=== PATIENT | male | born 1950 | race Caucasian/White ===

== ENCOUNTER → 2017-06-09 | Outpatient (CLI) | payer BC, OTHER ==
[~2017-06-09] MED LIST: AGM875 PO; ASPEC325 PO; ASPEC81 PO; ASPI-113 PO; ATRIN6; CHOL4POW6; CYCL0.052 OP; FLM4 PO; LPT20 PO; METR0.754; MULT-506 PO; PLV75 PO; RSTOPS OPB
== END | disposition home or self-care (01) ==
LOC: C.LABSPEC 17:56
PROVIDERS: ATTEND Internal Medicine
DX: Z12.11 Encounter for screening for malignant neoplasm of colon (principal)

== ENCOUNTER → 2017-06-17 | Outpatient (CLI) | payer BC, OTHER ==
[2017-06-17 13:42] LABS: ALT/SGPT 49 U/L (12-78); AST/SGOT 29 U/L (15-37); BLOOD UREA NITROGEN 15 mg/dl (7-18); BUN/CREATININE RATIO 13.6 (10-20); CALCIUM 8.6 mg/dl (8.5-10.1); CARBON DIOXIDE 27 mmol/L (21-32); CHLORIDE 106 mmol/L (98-107); GLUCOSE 94 mg/dl (70-99); POTASSIUM 4.3 mmol/L (3.5-5.1); SODIUM 140 mmol/L (136-145)
[2017-06-17 13:47] LABS: ALB/GLOB RATIO 1.2 (0.9-2); ALKALINE PHOSPHATASE 53 U/L (45-117); CHOLESTEROL 275 mg/dl (0-200); CHOLESTEROL/HDL RATIO 5.2; HDL CHOLESTEROL 53 mg/dl; TRIGLYCERIDES 194 mg/dl (0-150); VERY LOW DENSITY LIPOPROT CALC 39 mg/dl
== END | disposition home or self-care (01) ==
LOC: C.LABSPEC 12:37
PROVIDERS: ATTEND Internal Medicine
DX: C61 Malignant neoplasm of prostate (principal)

== ENCOUNTER 2017-09-30 14:05 | Emergency (ER) | payer OTHER, BC ==
[~2017-09-30] VITALS: Ht 177.8 cm; Wt 92.0 kg
[~2017-09-30 14:05] MED LIST changes: -AGM875 PO; -ASPEC325 PO; -ASPEC81 PO; -ASPI-113 PO; +ASPI-320 PO; -ATRIN6; -CHOL4POW6; -METR0.754; -RSTOPS OPB
[2017-09-30 14:08] VITALS: TEMP 36.9; Ht 177.8 cm; Wt 92.0 kg
[2017-09-30] MEDS ORDERED: ONDANSETRON INJ 2 MG/ML 2 ML VIAL IV STA (14:17)
[2017-09-30] MEDS ORDERED: GI COCKTAIL PO STA (14:17)
[2017-09-30] MEDS ORDERED: SODIUM CHLORIDE 0.9% 1000ML 2,000 ML IV STA (14:17)
[2017-09-30] MEDS ORDERED: OMEG1CAP81 PO (14:24)
[2017-09-30] MEDS ORDERED: OMEG1CAP84 PO (14:24)
[2017-09-30] MEDS ORDERED: ALUMINUM/MAGNESIUM SUSP 30 ML UDC ONE (14:42)
[2017-09-30 14:43] LABS: EOS % 0.4 %; EOS ABS # 0.03 K/uL (0-0.5); HEMATOCRIT 43.4 % (42-52); HEMOGLOBIN 14.9 g/dL (14.0-18.0); IG# 0.01 K/uL (0.00-0.02); LYMPH % 4.5 %; LYMPH ABS # 0.35 K/uL (1.2-3.4); MEAN CELL VOLUME 90.4 fL (80-100); MEAN CORPUSCULAR HGB CONC 34.3 g/dl (32-36); MEAN PLATELET VOLUME 9.2 fL (7.4-10.4); MONO % 3.5 %; MONO ABS # 0.27 K/uL (0.11-0.59); NEUT % 91.5 %; NEUT ABS # 7.09 K/uL (1.4-6.5); PLATELET COUNT 194 K/uL (130-400); RED CELL DISTRIBUTION WIDTH CV 13.5 % (11.5-14.5); RED CELL DISTRIBUTION WIDTH SD 44.2 fL (36.4-46.3); WHITE BLOOD COUNT 7.75 K/uL (4.8-10.8)
[2017-09-30] MEDS ORDERED: LIDOCAINE HCL 2% VISC SOLN 20 ML UDC ONE (14:43)
[2017-09-30] MEDS ORDERED: SODIUM CHLORIDE 0.9% 1000ML 1,000 ML IV STA (14:49)
--- NOTE | 2017-09-30 14:58 | DIAGNOSTIC IMAGING REPORT ---
ABDOMEN AND PELVIS CT WITHOUT CONTRAST CT DOSE: 925.69 mGycm HISTORY: Generalized abdominal pain. Fever. TECHNIQUE: Multiaxial CT images of the abdomen and pelvis were performed without contrast. A dose lowering technique was utilized adhering to the principles of ALARA. COMPARISON STUDY: None. FINDINGS: The lung bases are clear. No pneumoperitoneum. No pneumatosis. No suspicious lytic or blastic osseous lesions. Mild hepatic steatosis. The unenhanced spleen, adrenal glands, pancreas, and gallbladder are unremarkable. No renal or ureteral stones. No hydronephrosis. A few surgical clips within the prostate gland. No retroperitoneal lymphadenopathy. Suboptimal evaluation for bowel pathology due to the lack of intravenous and oral contrast. However, there is no definite bowel wall thickening or obstruction. A few scattered colonic diverticula. Normal appendix. Small fat-containing right inguinal hernia. Moderate bladder wall thickening. IMPRESSION: 1. No bowel wall thickening or obstruction. 2. Moderate bladder wall thickening. Recommend correlation with urinalysis to exclude a cystitis. 3. Colonic diverticulosis. 4. Normal appendix. 5. Mild hepatic steatosis. Electronically signed by: Owen Gamble M.D. 09/30/2017 2:56 PM Dictated Date/Time: 09/30/2017 2:47 PM
[2017-09-30 15:02] LABS: ALBUMIN 3.8 gm/dl (3.4-5.0); CALCIUM 8.5 mg/dl (8.5-10.1); CREATININE 1.12 mg/dl (0.60-1.40); POTASSIUM 3.7 mmol/L (3.5-5.1)
[2017-09-30 15:05] LABS: TOTAL PROTEIN 7.2 gm/dl (6.4-8.2)
--- NOTE | 2017-09-30 15:59 | EMERGENCY ROOM VISIT NOTE ---
History Report prepared by [place]: Yosi Mack Under the Supervision of: Dr. Omar Roblero D.O. 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 He notes three episodes of vomiting. He notes abdominal pain. His abdominal pain is more of an achy feeling throughout his whole abdomen. He was referred in by his primary care doctor. He notes that he has taken Tylenol. He notes recent fevers of 100.9 and 99. He notes positive sick contacts. He reports that he has been able to keep ice chips down. He has a hiatal hernia and he normally sleeps on a wedge pillow. He has had a flare up today with his acid reflux. He denies any blood in vomit. He notes his last normal bowel movement was last evening. Pt denies headache, change in vision, fevers, chest pain, shortness of breath, diarrhea, pain with urination, and melena. Patient denies diabetes, hypertension, hyperlipidemia, CAD, history of sudden at a young age, and smoking. Patient denies swelling of calves, recent trips, history of immobilization or recent surgery, prior history of DVT, hemoptysis, history of malignancy, and history of smoking. He notes that he has not taken any of his daily medications. 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 He denies any changes in vision. Review of Systems See HPI for pertinent positives & negatives. A total of 10 systems reviewed and were otherwise negative. Past Medical & Surgical Medical Problems: (1) ACUTE MEMORY LOSS (2) Prostate CA Family History No pertinent family history reported. Social History Smoking Status: Never Smoker Smokeless Tobacco Use: No Alcohol Use: none Drug Use: none Marital Status: Housing Status: lives with significant other Current/Historical Medications Scheduled Aspirin (Aspirin EC Low Dose), 81 MG PO QAM Atorvastatin (Atorvastatin Calcium), 20 MG PO QAM Clopidogrel Bisulfate (Clopidogrel), 75 MG PO QAM Cyclosporine (Ophth) (Restasis), 1 DROP OP BID Multivitamin (Multivitamin), 1 TAB PO DAILY [place]-3 Fatty Acids (Fish Oil), 3 CAP PO QPM [place]-3 Fatty Acids (Fish Oil), 2 CAP PO QAM Allergies Coded Allergies: Iodinated Diagnostic Agents (Verified Allergy, Intermediate, Hives, ) Codeine (Unverified Allergy, Unknown, HEADACHE, 09/30/17) Erythromycin (Unverified Allergy, Unknown, HIVES, 09/30/17) Latex (Unverified Allergy, Unknown, SKIN IRRITATION, 09/30/17) Physical Exam Vital Signs Date Time Temp Pulse Resp B/P (MAP) Pulse Ox O2 Delivery O2 Flow Rate FiO2 09/30/17 16:43 70 17 113/77 97 09/30/17 15:52 65 18 120/77 96 Room Air 09/30/17 14:08 36.9 100 16 124/78 97 Room Air Physical Exam GENERAL: Sitting up in bed, alert, well appearing, well nourished, no distress, non-toxic EYE EXAM: normal conjunctiva. OROPHARYNX: no exudate, no erythema, lips, buccal mucosa, and tongue normal and mucous membranes are moist NECK: supple, no nuchal rigidity, no adenopathy, non-tender LUNGS: Clear to auscultation. Normal chest wall mechanics HEART: no murmurs, S1 normal and S2 normal ABDOMEN: abdomen soft, non-tender, normo-active bowel sounds, no masses, no rebound or guarding. BACK: Back is symmetrical on inspection and there is no deformity, no midline tenderness, no CVA tenderness. SKIN: no rashes and no bruising UPPER EXTREMITIES: upper extremities are grossly normal. LOWER EXTREMITIES: No pitting edema. NEURO EXAM: Normal sensorium, cranial nerves II-XII grossly intact, normal speech, no gross weakness of arms, no gross weakness of legs. Medical Decision & Procedures ER Provider Diagnostic Interpretation: Radiology results as stated below per my review and the radiologist's interpretation: ABDOMEN AND PELVIS CT WITHOUT CONTRAST CT DOSE: 925.69 mGycm HISTORY: Generalized abdominal pain. Fever. TECHNIQUE: Multiaxial CT images of the abdomen and pelvis were performed without contrast. A dose lowering technique was utilized adhering to the principles of ALARA. COMPARISON STUDY: None. FINDINGS: The lung bases are clear. No pneumoperitoneum. No pneumatosis. No suspicious lytic or blastic osseous lesions. Mild hepatic steatosis. The unenhanced spleen, adrenal glands, pancreas, and gallbladder are unremarkable. No renal or ureteral stones. No hydronephrosis. A few surgical clips within the prostate gland. No retroperitoneal lymphadenopathy. Suboptimal evaluation for bowel pathology due to the lack of intravenous and oral contrast. However, there is no definite bowel wall thickening or obstruction. A few scattered colonic diverticula. Normal appendix. Small fat-containing right inguinal hernia. Moderate bladder wall thickening. IMPRESSION: 1. No bowel wall thickening or obstruction. 2. Moderate bladder wall thickening. Recommend correlation with urinalysis to exclude a cystitis. 3. Colonic diverticulosis. 4. Normal appendix. 5. Mild hepatic steatosis. Electronically signed by: Owen Gamble M.D. 09/30/2017 2:56 PM Dictated Date/Time: 09/30/2017 2:47 PM Laboratory Results 09/30/17 14:31 Red Blood Count 4.80, Mean Corpuscular Volume 90.4, Mean Corpuscular Hemoglobin 31.0, Mean Corpuscular Hemoglobin Concent 34.3, Mean Platelet Volume 9.2, Neutrophils (%) (Auto) 91.5, Lymphocytes (%) (Auto) 4.5, Monocytes (%) (Auto) 3.5, Eosinophils (%) (Auto) 0.4, Basophils (%) (Auto) 0.0, Neutrophils # (Auto) 7.09, Lymphocytes # (Auto) 0.35, Monocytes # (Auto) 0.27, Eosinophils # (Auto) 0.03, Basophils # (Auto) 0.00 09/30/17 14:31 Test 09/30/17 14:31 09/30/17 15:57 White Blood Count 7.75 K/uL (4.8-10.8) Red Blood Count 4.80 M/uL (4.7-6.1) Hemoglobin 14.9 g/dL (14.0-18.0) Hematocrit 43.4 % (42-52) Mean Corpuscular Volume 90.4 fL (80-100) Mean Corpuscular Hemoglobin 31.0 pg (25-34) Mean Corpuscular Hemoglobin Concent 34.3 g/dl (32-36) Platelet Count 194 K/uL (130-400) Mean Platelet Volume 9.2 fL (7.4-10.4) Neutrophils (%) (Auto) 91.5 % Lymphocytes (%) (Auto) 4.5 % Monocytes (%) (Auto) 3.5 % Eosinophils (%) (Auto) 0.4 % Basophils (%) (Auto) 0.0 % Neutrophils # (Auto) 7.09 K/uL (1.4-6.5) Lymphocytes # (Auto) 0.35 K/uL (1.2-3.4) Monocytes # (Auto) 0.27 K/uL (0.11-0.59) Eosinophils # (Auto) 0.03 K/uL (0-0.5) Basophils # (Auto) 0.00 K/uL (0-0.2) RDW Standard Deviation 44.2 fL (36.4-46.3) RDW Coefficient of Variation 13.5 % (11.5-14.5) Immature Granulocyte % (Auto) 0.1 % Immature Granulocyte # (Auto) 0.01 K/uL (0.00-0.02) Anion Gap 8.0 mmol/L (3-11) Est Creatinine Clear Calc Drug Dose 75.0 ml/min Estimated GFR () 79.5 Estimated GFR (Non- 68.6 BUN/Creatinine Ratio 14.8 (10-20) Calcium Level 8.5 mg/dl (8.5-10.1) Total Bilirubin 0.7 mg/dl (0.2-1) Direct Bilirubin 0.2 mg/dl (0-0.2) Aspartate Amino Transf (AST/SGOT) 47 U/L (15-37) Alanine Aminotransferase (ALT/SGPT) 91 U/L (12-78) Alkaline Phosphatase 71 U/L (45-117) Total Protein 7.2 gm/dl (6.4-8.2) Albumin 3.8 gm/dl (3.4-5.0) Lipase 191 U/L (73-393) Urine Color DK YELLOW Urine Appearance CLEAR (CLEAR) Urine pH 6.5 (4.5-7.5) Urine Specific [place] 1.030 (1.000-1.030) Urine Protein NEG (NEG) Urine Glucose (UA) NEG (NEG) Urine Ketones TRACE (NEG) Urine Occult Blood NEG (NEG) Urine Nitrite NEG (NEG) Urine Bilirubin NEG (NEG) Urine Urobilinogen NEG (NEG) Urine Leukocyte Esterase NEG (NEG) Urine WBC (Auto) 0 /hpf (0-5) Urine RBC (Auto) 0-4 /hpf (0-4) Urine Hyaline Casts (Auto) 1-5 /lpf (0-5) Urine Epithelial Cells (Auto) 0-5 /lpf (0-5) Urine Bacteria (Auto) NEG (NEG) Laboratory results per my review. Medications Administered Medications (Trade) Dose Ordered Sig/Malcolm Route Start Time Stop Time Status Last Admin Dose Admin Sodium Chloride 2,000 ml @ 999 mls/hr Q2H1M STAT IV 09/30/17 14:17 09/30/17 16:17 DC 09/30/17 14:48 999 MLS/HR Ondansetron HCl (Zofran Inj) 4 mg NOW STAT IV 09/30/17 14:17 09/30/17 14:20 DC 09/30/17 14:48 4 MG Al Hydroxide/Mg Hydroxide (Maalox Susp) 30 ml STK-MED ONCE .ROUTE 09/30/17 14:42 09/30/17 14:43 DC 09/30/17 14:49 30 ML Lidocaine HCl (Viscous Lidocaine 2% Soln) 20 ml STK-MED ONCE .ROUTE 09/30/17 14:43 09/30/17 14:44 DC 09/30/17 14:48 20 ML ED Course ED COURSE: Vital signs were reviewed and showed tachycardic The patients medical record was reviewed The above diagnostic studies were performed and reviewed. ED treatments and interventions as stated above. 1409: The patient was evaluated in room B6. A complete history and physical examination was performed. 1417: Ordered Gi Cocktail 24 ml PO, Zofran 4 mg IV, and Sodium Chloride 2,000 ml @ 999 mls/hr IV 1442: Ordered Maalox 30 ml PO 1443: Ordered Lidocaine HCl 20 ml PO 1449: Sodium Chloride 1,000 ml @ 999 mls/hr IV 1550: Upon reevaluation, the patient is he is feeling better and resting comfortably. I discussed my findings with the patient and he understands and agrees with the treatment plan. Based on the patients age, coexisting illnesses, exam and lab findings the decision to treat as an outpatient was made. The patient remained stable while under my care. The patient appeared well at the time of discharge. Medical Decision Differential diagnoses includes but is not limited to gastritis, peptic ulcer disease, GERD, gallbladder disease, pancreatitis, small bowel obstruction, acute coronary syndrome, pericarditis, ischemic bowel, irritable bowel disease, irritable bowel syndrome, appendicitis, diverticulitis, malignancy, hernia, urinary tract infection, torsion, perforation, trauma, infectious. Patient is a 67-year-old male who presents to ER for crampy abdominal discomfort associated with vomiting which started last night. He did have a fever this morning of 100.9. He is referred in by his primary care doctor as he was unable to see him in the office due to a family emergency. Patient had a fairly benign exam. Labs were obtained. CBC all BMP was unremarkable. LFTs were only slightly elevated. Lipase is normal. Bilirubin was normal. UA was unremarkable. CT of the abdomen and pelvis was unremarkable. Gallbladder showed no stones or surrounding obvious fluid. He was given fluids and Zofran while in the ER. There are no stones noted in CBD. Appendix was normal. Bladder wall was slightly thickened. UA was negative. Patient was able to tolerate fluids. He was updated bedside. Favor his transaminitis is likely secondary to the vomiting. He was discharged follow-up with PCP. Discussed with Pt concerning signs and symptoms to watch out for. Pt was instructed to follow up with their PCP and discussed with the patient their option to return to the ED at anytime for persistent or worsening symptoms. The appropriate anticipatory guidance and out-patient management, including indications for return to the emergency department, were explained at length to the patient and understood. Head Trauma GCS Score: 10 (12+.) Medication Reconcilliation Current Medication List: was personally reviewed by me Blood Pressure Screening Patient's blood pressure: Elevated blood pressure Blood pressure disposition: Elevated BP felt to be situational Impression Primary Impression: Vomiting Additional Impression: Diffuse abdominal pain Scribe Attestation The scribe's documentation has been prepared under my direction and personally reviewed by me in its entirety. I confirm that the note above accurately reflects all work, treatment, procedures, and medical decision making performed by me. Departure Information Dispostion Home / Self-Care Referrals Wilton Bergman M.D. (PCP) Forms HOME CARE DOCUMENTATION FORM, IMPORTANT VISIT INFORMATION Patient Instructions Abdominal Pain - [facility], On License Of [facility] Additional Instructions Please follow up with your primary care doctor with in the next 24 hours. Any worsening of your symptoms, please return to the ED immediately. This includes any fevers greater than 100.4, worsening pain, chest pain, shortness breath, persistent nausea, vomiting, unable to eat or drink, or any other concerning signs or symptoms from your standpoint. Please take Tylenol or Motrin as needed for fever/pain. Problem Qualifiers Primary Impression: Vomiting Vomiting type: unspecified Vomiting Intractability: non-intractable Nausea presence: with nausea Qualified Codes: R11.2 - Nausea with vomiting, unspecified
[2017-09-30 16:43] VITALS: BP 113/77; PULSE 70; O2SAT 97
== END 2017-09-30 16:47 | disposition home or self-care (01) ==
LOC: C.EDB 14:06
DX: R11.2 Nausea with vomiting, unspecified (principal); R10.84 Generalized abdominal pain; K44.9 Diaphragmatic hernia without obstruction or gangrene; K21.9 Gastro-esophageal reflux disease without esophagitis; Z85.46 Personal history of malignant neoplasm of prostate; Z79.82 Long term (current) use of aspirin; Z79.899 Other long term (current) drug therapy

== ENCOUNTER → 2017-10-21 | Outpatient (CLI) | payer OTHER, BC ==
[~2017-10-21] MED LIST changes: +ASPEC81 PO; -ASPI-320 PO; -FLM4 PO; +OMEG1CAP81 PO; +OMEG1CAP84 PO
[2017-10-21 16:13] LABS: CHOLESTEROL 152 mg/dl (0-200); LDL CHOLESTEROL (DIRECT) 82 mg/dl
== END | disposition home or self-care (01) ==
LOC: C.LABSPEC 12:33
PROVIDERS: ATTEND Internal Medicine
DX: E78.5 Hyperlipidemia, unspecified (principal)

== ENCOUNTER → 2017-12-20 | Outpatient (CLI) | payer OTHER, BC | END | disposition home or self-care (01) | LOC: C.LABSPEC 12:39 | PROVIDERS: ATTEND Internal Medicine | DX: Z85.46 Personal history of malignant neoplasm of prostate (principal) ==